=== PATIENT | male | born 1980 | race American Indian/Alaskan Native ===

== ENCOUNTER 2019-11-15 08:59 | Emergency (ER) | payer BC, OTHER ==
--- NOTE | 2019-11-15 09:30 | EDM.PDOC ---
ED HPI GENERAL MEDICAL PROBLEM - General Chief Complaint: Chest Pain Stated Complaint: CHEST PAIN/SOB Time Seen by Provider: 11/15/19 09:25 - History of Present Illness INITIAL COMMENTS - FREE TEXT/NARRATIVE: 39-year-old male presents the emergency room with chest pain. He awoke this morning with this it is in the left side of his chest lower aspect just below his breast and radiates around his side into his back. He has no pain that radiates to his jaw or arms no shortness of breath. However if he takes a deep breath then he can make this pain worse. He denies a cough or recent illness. The patient has a significant past medical history of type 2 diabetes he is had this for at least 3 years. Is no history of heart problems however he is a strong family history his father had his first heart attack in his 30s. No other significant family history. The patient does smoke however he does not use illicit drugs or alcohol. Chest Pain Score (Numeric/FACES): 9 - Related Data Allergies Allergy/AdvReac Type Severity Reaction Status Date / Time No Known Allergies Allergy Verified 05/27/18 09:57 Home Meds: Home Meds Levothyroxine [Synthroid] 50 mg PO ACBREAKFAST 05/27/18 [History] glipiZIDE [Glipizide ER] 5 mg PO BID 05/27/18 [History] metFORMIN HCl [Metformin HCl] 500 mg PO BID 05/27/18 [History] Insulin. 11/15/19 [History] Naproxen [Naprosyn] 500 mg PO Q12H #20 tablet 11/15/19 [Rx] Past Medical History Endocrine/Metabolic History: Reports: Diabetes, Type II, Hypothyroidism, Obesity /BMI 30+ - Infectious Disease History Infectious Disease History: Reports: Chicken Pox - Past Surgical History HEENT Surgical History: Reports: Oral Surgery Social & Family History - Family History Family Medical History: Noncontributory - Tobacco Use Smoking Status *Q: Current Every Day Smoker Years of Tobacco use: 20 Packs/Tins Daily: 1 - Caffeine Use Caffeine Use: Reports: Coffee Other Caffeine Use: diet - Recreational Drug Use Recreational Drug Use: No - Living Situation & Occupation Living situation: Reports: , with Spouse, with Family (1 daughter) Occupation: Employed ([employer]) ED ROS GENERAL - Review of Systems Review Of Systems: See Below Constitutional: Reports: No Symptoms HEENT: Reports: No Symptoms Respiratory: Reports: Pleuritic Chest Pain Cardiovascular: Reports: Chest Pain. Denies: Dyspnea on Exertion, Edema, Lightheadedness, Palpitations Endocrine: Reports: No Symptoms GI/Abdominal: Reports: No Symptoms : Reports: No Symptoms Musculoskeletal: Reports: Back Pain (Left upper back pain just below the scapula ). Denies: No Symptoms ED EXAM, GENERAL - Physical Exam Exam: See Below Exam Limited By: No Limitations General Appearance: Alert, No Apparent Distress Head: Atraumatic, Normocephalic Neck: Normal Inspection, Supple, Non-Tender, Full Range of Motion Respiratory/Chest: No Respiratory Distress, Lungs Clear, Normal Breath Sounds, No Accessory Muscle Use. No: Chest Non-Tender (He has marked discomfort in his ribs left lower most and this radiates around the ribs into the back.) Cardiovascular: Normal Peripheral Pulses, Regular Rate, Rhythm, No Edema, No Gallop, No JVD, No Murmur, No Rub GI/Abdominal: Normal Bowel Sounds, Soft, Non-Tender, No Organomegaly, No Distention, No Abnormal Bruit, No Mass Back Exam: Normal Inspection. No: CVA Tenderness (L), CVA Tenderness (R), Decreased Range of Motion, Muscle Spasm, Paraspinal Tenderness, Vertebral Tenderness Neurological: Alert, Oriented, Normal Cognition EKG INTERPRETATION EKG Date: 11/15/19 Rhythm: NSR [place]: Normal P-Wave: Present QRS: Normal ST-T: Normal QT: Normal Comparison: NA - No Prior EKG EKG Interpretation Comments: aVF is not interpretable however this appears to be a normal EKG Course - Vital Signs Last Recorded V/S: Last Vital Signs Temp 36.9 C 11/15/19 09:05 Pulse 62 11/15/19 09:05 Resp 13 11/15/19 09:05 BP 127/91 H 11/15/19 09:05 Pulse Ox 95 11/15/19 09:05 - Orders/Labs/Meds Orders: Active Orders 24 hr Category Date Time Status EKG Documentation Completion [RC] ASDIRECTED Care 11/15/19 09:24 Active Chest 2V [CR] Stat Exams 11/15/19 09:31 Taken EKG 12 Lead [EK] Stat Ther 11/15/19 09:24 Ordered Labs: Laboratory Tests 11/15/19 11/15/19 11/15/19 Range/Units 09:13 09:13 09:13 WBC 6.08 (4.23-9.07) K/mm3 RBC 4.79 (4.63-6.08) M/mm3 Hgb 14.7 (13.7-17.5) gm/dl Hct 45.3 (40.1-51.0) % MCV 94.6 H (79.0-92.2) fl MCH 30.7 (25.7-32.2) pg MCHC 32.5 (32.2-35.5) g/dl RDW Std Deviation 43.1 (35.1-43.9) fL Plt Count 240 (163-337) K/mm3 MPV 9.8 (9.4-12.3) fl Neut % (Auto) 61.7 (34.0-67.9) % Lymph % (Auto) 27.0 (21.8-53.1) % [place] % (Auto) 9.0 (5.3-12.2) % Eos % (Auto) 1.6 (0.8-7.0) Baso % (Auto) 0.5 (0.1-1.2) % Neut # (Auto) 3.75 (1.78-5.38) K/mm3 Lymph # (Auto) 1.64 (1.32-3.57) K/mm3 [place] # (Auto) 0.55 (0.30-0.82) K/mm3 Eos # (Auto) 0.10 (0.04-0.54) K/mm3 Baso # (Auto) 0.03 (0.01-0.08) K/mm3 ESR 10 (0-15) mm/hr D-Dimer, Quantitative (0.19-0.50) mg/L Sodium 139 (136-145) mEq/L Potassium 4.7 (3.5-5.1) mEq/L Chloride 104 (98-107) mEq/L Carbon Dioxide 25 (21-32) mEq/L Anion Gap 14.7 (5-15) BUN 17 (7-18) mg/dL Creatinine 0.8 (0.7-1.3) mg/dL Est Cr Clr Drug Dosing 125.47 mL/min Estimated GFR (MDRD) > 60 (>60) mL/min BUN/Creatinine Ratio 21.3 H (14-18) Glucose 125 H (74-106) mg/dL Calcium 9.4 (8.5-10.1) mg/dL Total Bilirubin 0.3 (0.2-1.0) mg/dL AST 17 (15-37) U/L ALT 40 (16-63) U/L Alkaline Phosphatase 82 (46-116) U/L Troponin I < 0.017 (0.00-0.056) ng/mL C-Reactive Protein <0.2 (<1.0) mg/dL Total Protein 7.3 (6.4-8.2) g/dl Albumin 4.0 (3.4-5.0) g/dl Globulin 3.3 gm/dL Albumin/Globulin Ratio 1.2 (1-2) 11/15/19 Range/Units 09:13 WBC (4.23-9.07) K/mm3 RBC (4.63-6.08) M/mm3 Hgb (13.7-17.5) gm/dl Hct (40.1-51.0) % MCV (79.0-92.2) fl MCH (25.7-32.2) pg MCHC (32.2-35.5) g/dl RDW Std Deviation (35.1-43.9) fL Plt Count (163-337) K/mm3 MPV (9.4-12.3) fl Neut % (Auto) (34.0-67.9) % Lymph % (Auto) (21.8-53.1) % [place] % (Auto) (5.3-12.2) % Eos % (Auto) (0.8-7.0) Baso % (Auto) (0.1-1.2) % Neut # (Auto) (1.78-5.38) K/mm3 Lymph # (Auto) (1.32-3.57) K/mm3 [place] # (Auto) (0.30-0.82) K/mm3 Eos # (Auto) (0.04-0.54) K/mm3 Baso # (Auto) (0.01-0.08) K/mm3 ESR (0-15) mm/hr D-Dimer, Quantitative < 0.19 L (0.19-0.50) mg/L Sodium (136-145) mEq/L Potassium (3.5-5.1) mEq/L Chloride (98-107) mEq/L Carbon Dioxide (21-32) mEq/L Anion Gap (5-15) BUN (7-18) mg/dL Creatinine (0.7-1.3) mg/dL Est Cr Clr Drug Dosing mL/min Estimated GFR (MDRD) (>60) mL/min BUN/Creatinine Ratio (14-18) Glucose (74-106) mg/dL Calcium (8.5-10.1) mg/dL Total Bilirubin (0.2-1.0) mg/dL AST (15-37) U/L ALT (16-63) U/L Alkaline Phosphatase (46-116) U/L Troponin I (0.00-0.056) ng/mL C-Reactive Protein (<1.0) mg/dL Total Protein (6.4-8.2) g/dl Albumin (3.4-5.0) g/dl Globulin gm/dL Albumin/Globulin Ratio (1-2) - Re-Assessments/Exams Free Text/Narrative Re-Assessment/Exam: 11/15/19 11:33 Chest x-ray shows no acute cardiopulmonary changes. EKG is normal laboratory evaluation is unrevealing including a negative d-dimer and troponin. Patient's pain is aggravated by breathing in and out most likely pleuritic in nature we will start him on nonsteroidal. Departure - Departure Time of Disposition: 11:37 Disposition: Home, Self-Care 01 Clinical Impression: Chest pain, pleuritic Prescriptions: Naproxen [Naprosyn] 500 mg PO Q12H #20 tablet Referrals: PCP,Not In Area [Primary Care Provider] - Forms: ED Department Discharge Additional Instructions: Return to the emergency room with any questions problems or worsening symptoms. Take Naprosyn twice daily with your morning and evening meals as we discussed. Do not take ibuprofen with this. Follow-up in the hospital clinic in 2 to 3 days for recheck call today to schedule an appointment [phone] Sepsis Event Note - Evaluation Sepsis Screening Result: No Definite Risk - Focused Exam Vital Signs: Vital Signs Temp Pulse Resp BP Pulse Ox 11/15/19 09:05 36.9 C 62 13 127/91 H 95 Date Exam was Performed: 11/15/19 Time Exam was Performed: 11:33 - My Orders Last 24 Hours: My Active Orders 11/15/19 09:24 EKG Documentation Completion [RC] ASDIRECTED EKG 12 Lead [EK] Stat 11/15/19 09:31 Chest 2V [CR] Stat - Assessment/Plan Last 24 Hours: My Active Orders 11/15/19 09:24 EKG Documentation Completion [RC] ASDIRECTED EKG 12 Lead [EK] Stat 11/15/19 09:31 Chest 2V [CR] Stat
--- NOTE | 2019-11-15 12:07 | CR ---
Chest: Two views of the chest were obtained. Comparison: No prior chest imaging. Heart size and mediastinum are normal. Lungs are clear. Bony structures are unremarkable. Impression: 1. Nothing acute is seen on two-view chest x-ray. Diagnostic code #1 This report was dictated in [place] Standard Time
== END 2019-11-15 11:50 | disposition home or self-care (01) ==
LOC: JD.ED 08:59
DX: R07.81 Pleurodynia (principal); E11.9 Type 2 diabetes mellitus without complications; E03.9 Hypothyroidism, unspecified; F17.210 Nicotine dependence, cigarettes, uncomplicated; E66.9 Obesity, unspecified; Z68.32 Body mass index [BMI] 32.0-32.9, adult; Z79.84 Long term (current) use of oral hypoglycemic drugs; Z79.890 Hormone replacement therapy
CPT/HCPCS: 36415; 71046; 71046-26; 80053; 84484; 85025; 85379; 85652; 86140; 93005; 93010; 99283; 99285-25